=== PATIENT | male | born 1980 | race Caucasian/White ===

== ENCOUNTER 2018-05-27 18:53 | Inpatient (IN) | payer OTHER ==
[~2018-05-27] VITALS: Ht 185.4 cm; Wt 79.2 kg
[2018-05-27 19:57] LABS: INTERNATIONAL NORMALIZED RATIO 1.02 (0.93-1.1); PROTHROMBIN TIME 10.5 Seconds (9.6-11.5)
[2018-05-27 19:58] LABS: ALANINE AMINOTRANSFERASE 49 U/L (12-78); ALBUMIN 4.2 g/dL (3.4-5.0); ANION GAP 11 mmol/L (5-15); CALCIUM 8.6 mg/dL (8.5-10.1); CHLORIDE 110 mmol/L (98-107); CREATININE 1.17 mg/dL (0.7-1.3); MEAN CORPUSCULAR HEMOGLOBIN 28.7 pg (27.5-34.5); MEAN CORPUSCULAR HGB CONC 33.8 g/dL (33.2-36.2); MEAN CORPUSCULAR VOLUME 84.9 fL (81-97); RED BLOOD COUNT 5.78 x10^6/uL (4.38-5.82); RED CELL DISTRIBUTION WIDTH 13.7 % (9.4-14.8)
[2018-05-27 20:00] LABS: ALKALINE PHOSPHATASE 70 U/L (45-117); BILIRUBIN,TOTAL 0.4 mg/dL (0.2-1.0); TOTAL PROTEIN 7.6 g/dL (6.4-8.2)
[2018-05-27 20:28] LABS: BASOPHILS # (AUTO) 0.02 x10^3/uL (0-0.1); BASOPHILS % (AUTO) 0 % (0-1); EOSINOPHILS # (AUTO) 0.05 x10^3/uL (0-0.4); EOSINOPHILS % (AUTO) 1 % (1-7); LYMPHOCYTES # (AUTO) 2.12 x10^3/uL (1-3.4); LYMPHOCYTES % (AUTO) 32 % (22-44); MEAN PLATELET VOLUME 11.4 fL (7.4-10.4); MONOCYTES # (AUTO) 0.48 x10^3/uL (0.2-0.8); MONOCYTES % (AUTO) 7 % (2-9); NEUTROPHILS # (AUTO) 3.89 x10^3/uL (1.8-6.8); NEUTROPHILS % (AUTO) 59 % (42-75); PLATELET COUNT 94 x10^3/uL (130-400)
[2018-05-27 20:29] LABS: <PLATELET ESTIMATE> DECREASED; <RBC MORPHOLOGY> NORMAL; LARGE PLATELETS 2+; MD MORPH REVIEW ONLY
[2018-05-27] MEDS ORDERED: MIDAZOLAM 1 MG/ML, 2ML ONE (20:33)
[2018-05-27] MEDS ORDERED: ACYCLOVIR 750 MG in SODIUM CHLORIDE 0.9% 250 ML IV ONE (21:00)
[2018-05-27] MEDS ORDERED: CEFTRIAXONE 2,000 MG in SODIUM CHLORIDE 0.9% 50 ML IVPB ONE (21:00)
[2018-05-27] MEDS ORDERED: PHARMACOKINETIC CONSULTATION MC ONE ×2 (21:00→23:45)
[2018-05-27] MEDS ORDERED: VANCOMYCIN 1,500 MG in SODIUM CHLORIDE 0.9% 250 ML IV ONE (21:00)
[2018-05-27] MEDS ORDERED: VANCOMYCIN PER PHARMACY MC PRN ×2 (21:00→22:30)
[2018-05-27] MEDS ORDERED: MIDAZOLAM 1 MG/ML, 2ML IVPush ONE (21:00)
[2018-05-27] MEDS ORDERED: PROPOFOL 100 ML IV PRN ×2 (21:30→23:21)
[2018-05-27] MEDS ORDERED: ROCURONIUM 10 MG/ML,10ML IVPush ONE (21:30)
[2018-05-27] MEDS ORDERED: ETOMIDATE 20 MG/10 ML IVPush ONE (21:30)
[2018-05-27] MEDS ORDERED: LIDOCAINE-MPF 2%, 2ML ONE (21:37)
[2018-05-27 21:47] LABS: SALICYLATE LEVEL 2.6 mg/dL (2.8-20.0)
[2018-05-27 21:56] LABS: ACETAMINOPHEN < 2 mcg/mL (10-30)
[2018-05-27] MEDS: SODIUM CHLORIDE 0.9% 1,000 ML IV SCH (22:10)
[2018-05-27 22:19] LABS: GLUCOSE, CSF 59 mg/dL (40-80); TOTAL PROTEIN,CSF 95 mg/dL (15-45)
[2018-05-27] MEDS ORDERED: ENALAPRILAT 1.25 MG/ML, 2ML IVPush PRN (22:30)
[2018-05-27] MEDS ORDERED: hydrALAzine 20 MG/ML, 1ML IVPush PRN (22:30)
[2018-05-27] MEDS ORDERED: CEFTRIAXONE 2 GM in SODIUM CHLORIDE 0.9% 50 ML IV SCH ×2 (22:30→23:45)
[2018-05-27] MEDS ORDERED: FENTANYL PF 100 MCG/2ML ONE (22:39)
[2018-05-27 22:40] LABS: MICROSCOPIC NOT IND
[2018-05-27 22:52] LABS: AMPHETAMINE SCREEN, URINE Negative (Negative); BARBITURATE SCREEN, URINE Negative (Negative); BENZODIAZEPINE SCREEN, URINE Positive (Negative); CANNABINOID SCREEN, URINE Negative (Negative); COCAINE SCREEN, URINE Negative (Negative); CULTURE INDICATED? NO; METHADONE SCREEN, URINE Negative (Negative); OPIATE SCREEN, URINE Negative (Negative)
[2018-05-27] MEDS ORDERED: ICN FENTANYL 4MCG/ML IV IVPush PRN (23:00)
[2018-05-27] MEDS ORDERED: POTASSIUM CHLORIDE 20 MEQ TAB.ER.PRT PO ONE (23:30)
[2018-05-27] MEDS ORDERED: ACETAMINOPHEN 650 MG/20.3 ML UDC NG PRN (23:30)
[2018-05-27] MEDS ORDERED: LIDOCAINE-MPF 1%, 2ML ENDO PRN (23:30)
[2018-05-27] MEDS ORDERED: PHARMACY MAY ADJ FOR RENAL FX MC SCH (23:30)
[2018-05-27] MEDS ORDERED: FENTANYL PF 100 MCG/2ML IVPush PRN ×2 (23:30)
[2018-05-27] MEDS ORDERED: PHARMACOKINETIC MONITORING MC PRN (23:45)
[2018-05-28] VITALS: BP 118/67
[2018-05-28] MEDS ORDERED: PROPOFOL 10 MG/ML, 100ML IV ONE
[2018-05-28] MEDS ORDERED: VECURONIUM 10 MG ONE
[2018-05-28] MEDS ORDERED: ETOMIDATE 40 MG/20 ML ONE
[2018-05-28] MEDS ORDERED: MIDAZOLAM 1 MG/ML, 5ML ONE
[2018-05-28] MEDS ORDERED: ROCURONIUM 10 MG/ML,10ML ONE
[2018-05-28] MEDS ORDERED: POTASSIUM CHLORIDE 10% 40 MEQ/30 ML UDC PO ONE (00:30)
[2018-05-28] MEDS: HEPARIN 5,000 UNITS/ML, 1ML SQ SCH ×4 (00:32→23:47)
[2018-05-28] MEDS: ACETAMINOPHEN 325 MG TABLET PO PRN (00:32)
[2018-05-28] MEDS: FAMOTIDINE 20 MG/2 ML IV SCH ×3 (00:32→23:45)
[2018-05-28] MEDS: FENTANYL PF 100 MCG/2ML IVPush PRN ×3 (01:13→04:34)
[2018-05-28] MEDS: VANCOMYCIN 1,500 MG in SODIUM CHLORIDE 0.9% 250 ML IV SCH ×3 (04:02→22:35)
[2018-05-28 04:55] LABS: MEAN CORPUSCULAR HEMOGLOBIN 28.9 pg (27.5-34.5); MEAN CORPUSCULAR HGB CONC 34.6 g/dL (33.2-36.2); MEAN CORPUSCULAR VOLUME 83.5 fL (81-97); MEAN PLATELET VOLUME 15.4 fL (7.4-10.4); PLATELET COUNT 108 x10^3/uL (130-400); RED BLOOD COUNT 4.73 x10^6/uL (4.38-5.82); RED CELL DISTRIBUTION WIDTH 13.7 % (9.4-14.8)
[2018-05-28 04:59] LABS: ALBUMIN 3.3 g/dL (3.4-5.0); ANION GAP 10 mmol/L (5-15); CALCIUM 7.3 mg/dL (8.5-10.1); CHLORIDE 111 mmol/L (98-107)
[2018-05-28 05:10] LABS: ALANINE AMINOTRANSFERASE 40 U/L (12-78); ALKALINE PHOSPHATASE 54 U/L (45-117); BILIRUBIN,TOTAL 0.7 mg/dL (0.2-1.0); CREATININE 1.01 mg/dL (0.7-1.3); TOTAL PROTEIN 6.2 g/dL (6.4-8.2)
[2018-05-28 05:50] LABS: BASOPHILS # (AUTO) 0.03 x10^3/uL (0-0.1); BASOPHILS % (AUTO) 0 % (0-1); EOSINOPHILS # (AUTO) 0.03 x10^3/uL (0-0.4); EOSINOPHILS % (AUTO) 0 % (1-7); LYMPHOCYTES # (AUTO) 1.43 x10^3/uL (1-3.4); LYMPHOCYTES % (AUTO) 17 % (22-44); MD SCAN; MONOCYTES % (AUTO) 7 % (2-9); NEUTROPHILS # (AUTO) 6.25 x10^3/uL (1.8-6.8); NEUTROPHILS % (AUTO) 75 % (42-75)
[2018-05-28] MEDS: ACYCLOVIR 750 MG in SODIUM CHLORIDE 0.9% 250 ML IV SCH ×3 (05:53→21:13)
[2018-05-28] MEDS: SODIUM CHLORIDE 0.9% 1,000 ML IV SCH (05:53)
[2018-05-28] MEDS ORDERED: MAGNESIUM SULFATE PMX 2GM/50ML 50 ML IV ONE (06:00)
[2018-05-28] MEDS ORDERED: MAGNESIUM SULFATE 4 GM in SODIUM CHLORIDE 0.9% 100 ML IV ONE (08:30)
[2018-05-28] MEDS ORDERED: MAGNESIUM SULFATE PMX 4GM/100M 100 ML IVPB ONE (08:30)
[2018-05-28] MEDS ORDERED: SODIUM PHOSPHATE 10 MMOL in SODIUM CHLORIDE 0.9% 500 ML IV ONE (08:30)
[2018-05-28] MEDS: POTASSIUM CHLORIDE 10% 20 MEQ/15 ML UDC PO SCH ×2 (08:57→17:32)
[2018-05-28 10:01] LABS: CHLORIDE,URINE RANDOM 69 mmol/L; POTASSIUM,URINE RANDOM 13 mmol/L; SODIUM,URINE RANDOM 72 mmol/L
[2018-05-28] MEDS ORDERED: DESMOPRESSIN 4 MCG/ML IVPush ONE (10:30)
[2018-05-28] MEDS: CEFTRIAXONE 2 GM in SODIUM CHLORIDE 0.9% 50 ML IV SCH ×2 (10:52→20:00)
[2018-05-28 13:26] LABS: OSMOLALITY,URINE 217 mOsm/kg (500-850)
[2018-05-29 04:31] LABS: O2 FLOW ROOM AIR L/min
[2018-05-29] MEDS: ACYCLOVIR 750 MG in SODIUM CHLORIDE 0.9% 250 ML IV SCH ×3 (05:03→23:34)
[2018-05-29 05:24] LABS: BASOPHILS # (AUTO) 0.02 x10^3/uL (0-0.1); BASOPHILS % (AUTO) 1 % (0-1); EOSINOPHILS # (AUTO) 0.17 x10^3/uL (0-0.4); EOSINOPHILS % (AUTO) 4 % (1-7); LYMPHOCYTES # (AUTO) 1.64 x10^3/uL (1-3.4); LYMPHOCYTES % (AUTO) 36 % (22-44); MD SCAN; MEAN CORPUSCULAR HEMOGLOBIN 28.2 pg (27.5-34.5); MEAN CORPUSCULAR HGB CONC 33.3 g/dL (33.2-36.2); MEAN CORPUSCULAR VOLUME 84.6 fL (81-97); MEAN PLATELET VOLUME 14.4 fL (7.4-10.4); MONOCYTES # (AUTO) 0.41 x10^3/uL (0.2-0.8); MONOCYTES % (AUTO) 9 % (2-9); NEUTROPHILS # (AUTO) 2.34 x10^3/uL (1.8-6.8); NEUTROPHILS % (AUTO) 51 % (42-75); PLATELET COUNT 102 x10^3/uL (130-400); RED BLOOD COUNT 4.64 x10^6/uL (4.38-5.82); RED CELL DISTRIBUTION WIDTH 14.3 % (9.4-14.8)
[2018-05-29] MEDS: VANCOMYCIN 1,500 MG in SODIUM CHLORIDE 0.9% 250 ML IV SCH ×3 (06:18→21:42)
[2018-05-29] MEDS: HEPARIN 5,000 UNITS/ML, 1ML SQ SCH ×3 (08:57→23:36)
[2018-05-29] MEDS: POTASSIUM CHLORIDE 10% 20 MEQ/15 ML UDC PO SCH ×2 (08:57→16:51)
[2018-05-29] MEDS: CEFTRIAXONE 2 GM in SODIUM CHLORIDE 0.9% 50 ML IV SCH (09:18)
[2018-05-29] MEDS ORDERED: DESMOPRESSIN 4 MCG/ML IVPush ONE (10:30)
[2018-05-29 11:02] LABS: ANION GAP 10 mmol/L (5-15); CALCIUM 7.9 mg/dL (8.5-10.1); CHLORIDE 114 mmol/L (98-107); CREATININE 0.79 mg/dL (0.7-1.3)
[2018-05-29] MEDS ORDERED: CEFTRIAXONE 2 GM in SODIUM CHLORIDE 0.9% 100 ML IV SCH (21:00)
[2018-05-30 04:00] VITALS: BP 111/62
[2018-05-30 04:41] LABS: CREATININE 0.82 mg/dL (0.7-1.3)
[2018-05-30] MEDS: VANCOMYCIN 1,500 MG in SODIUM CHLORIDE 0.9% 250 ML IV SCH (04:57)
[2018-05-30] MEDS: ACYCLOVIR 750 MG in SODIUM CHLORIDE 0.9% 250 ML IV SCH (06:50)
[2018-05-30] MEDS: HEPARIN 5,000 UNITS/ML, 1ML SQ SCH ×3 (07:57→23:18)
[2018-05-30] MEDS ORDERED: CEFTRIAXONE 2 GM in SODIUM CHLORIDE 0.9% 50 ML IV SCH (09:00)
[2018-05-30] MEDS ORDERED: DESMOPRESSIN 4 MCG/ML IVPush ONE (09:00)
[2018-05-31 03:00] VITALS: BP 142/64
[2018-05-31 06:36] LABS: CHLORIDE 110 mmol/L (98-107)
[2018-05-31 06:41] LABS: ANION GAP 3 mmol/L (5-15); CALCIUM 8.9 mg/dL (8.5-10.1)
[2018-05-31] MEDS: HEPARIN 5,000 UNITS/ML, 1ML SQ SCH ×3 (08:03→23:27)
[2018-05-31 15:46] VITALS: BP 110/77
[2018-05-31 20:10] VITALS: BP 106/73
[2018-06-01 04:02] VITALS: BP 100/65
[2018-06-01 07:50] VITALS: BP 108/68
[2018-06-01] MEDS: HEPARIN 5,000 UNITS/ML, 1ML SQ SCH (08:18)
[2018-06-01] MEDS: ACETAMINOPHEN 325 MG TABLET PO PRN (11:18)
[2018-06-01 13:22] VITALS: BP 104/66
== END 2018-06-01 15:06 | disposition home or self-care (01) | DRG 208 ==
LOC: ED 21:15 → EDIP 22:07 → SUATTDRO 22:08 → CCU 23:07 → 3NW 05-31 15:49
PROVIDERS: ADMIT Hospitalist; ATTEND Hospitalist
PROC: 5A1935Z Respiratory Ventilation, Less than 24 Consecutive Hours (ICD-10-PCS; principal; 2018-05-27)
PROC: 0BH17EZ Insertion of Endotracheal Airway into Trachea, Via Natural or Artificial Opening (ICD-10-PCS; 2018-05-27)
PROC: 009U3ZZ Drainage of Spinal Canal, Percutaneous Approach (ICD-10-PCS; 2018-05-27)
DX: J96.01 Acute respiratory failure with hypoxia (principal); G93.40 Encephalopathy, unspecified; E23.2 Diabetes insipidus; Z99.11 Dependence on respirator [ventilator] status; E78.5 Hyperlipidemia, unspecified; E87.6 Hypokalemia; G43.109 Migraine with aura, not intractable, without status migrainosus; Z78.1 Physical restraint status
CPT/HCPCS: 31500; 36415; 36600; 51702; 62270; 99291; S0028; 70450; 70553; 71045; 80048; 80053; 80202; 80307; 80329; 81003; 82140; 82436; 82565; 82803; 82945; 83605; 83735; 83935; 84100; 84133; 84157; 84300; 84443; 84478; 84520; 85025; 85610; 85730; 86694; 86695; 86696; 86788; 86789; 87040; 87070; 87081; 87205; 87252; 87529; 87798; 89051; 93005; 94002; 94003; 94150; 95819; 96365; 96368; 96375; G0378; J0133; J0696; J1644; J2250; J2597; J2704; J3010; J3370; G0480; J3475; J7030; J7040; J7050